=== PATIENT | female | born 1965 | race Caucasian/White ===

== ENCOUNTER → 2022-11-27 | Day surgery (SDC) | payer BC | END | disposition home or self-care (01) | LOC: FMAMMOTONE 12:27 | PROVIDERS: ATTEND Obstetrics & Gynecology | PROC: 0HBT3ZX Excision of Right Breast, Percutaneous Approach, Diagnostic (ICD-10-PCS; principal; 2022-11-27) | DX: Z53.29 Procedure and treatment not carried out because of patient's decision for other reasons (principal); R92.8 Other abnormal and inconclusive findings on diagnostic imaging of breast ==

== ENCOUNTER 2023-02-11 08:32 | Observation (INO) | payer BC ==
[2023-02-11 10:30] LABS: BASO % 0.5 % (0-2.0); EOS % 0.6 % (0-4.5); HEMATOCRIT 38.8 % (32.4-45.2); HEMOGLOBIN 13.6 GM/dL (10.7-15.3); LYMPH % 27.4 % (8-40); MCH 32.8 pg (25.7-33.7); MCHC 35.1 g/dl (32.0-36.0); MEAN CELL VOLUME 93.4 fl (80-96); MEAN PLT VOLUME 7.5 fl (7.5-11.1); MONO % 6.5 % (3.8-10.2); PLATELET COUNT 291 10^3/uL (134-434); RBC 4.15 M/mm3 (3.60-5.2); RDW 12.9 % (11.6-15.6); WHITE BLOOD COUNT 5.8 K/mm3 (4.0-10.0)
[2023-02-11 10:34] LABS: INR 1.03 (0.83-1.09); PROTHROMBIN TIME (PATIENT) 11.9 SEC (9.7-13.0)
[2023-02-11 10:42] LABS: EPI CELLS 6 /uL (0-25.1); HYALINE CASTS 0 /uL (0-3.1); URINE APPEARANCE CLEAR; URINE BACTERIA 1 /uL (0-1359); URINE BILIRUBIN NEGATIVE (NEGATIVE); URINE COLOR YELLOW; URINE GLUCOSE (UA) NEGATIVE (NEGATIVE); URINE KETONE TRACE (NEGATIVE); URINE LEUK ESTERASE NEGATIVE (NEGATIVE); URINE NITRITE NEGATIVE (NEGATIVE); URINE PROTEIN NEGATIVE (NEGATIVE); URINE RBC 16 /uL (0-23.9); URINE UROBILINOGEN 0.2 mg/dL (0.2-1.0); URINE WBC 2 /uL (0-25.8)
[2023-02-11 10:45] LABS: OPIATES, URI NEGATIVE (NEGATIVE); URINE BARBITURATES NEGATIVE (NEGATIVE)
[2023-02-11 10:47] LABS: COCAINE, UR NEGATIVE (NEGATIVE); METHADONE, UR NEGATIVE (NEGATIVE); PHENCYCLIDINE,URINE NEGATIVE (NEGATIVE); URINE BENZODIAZEPINES NEGATIVE (NEGATIVE)
[2023-02-11 10:53] LABS: URINE AMPHETAMINES NEGATIVE (NEGATIVE)
[2023-02-11 11:09] LABS: POTASSIUM 3.9 mmol/L (3.5-5.1)
[2023-02-11 11:11] LABS: CALCIUM 8.9 mg/dL (8.5-10.1)
[2023-02-11 11:12] LABS: ALBUMIN 4.3 g/dl (3.4-5.0)
[2023-02-11 11:15] LABS: CREATININE 0.9 mg/dL (0.55-1.3)
[2023-02-11 11:17] LABS: BILIRUBIN,TOTAL 0.8 mg/dL (0.2-1); TOT PROT 7.8 g/dl (6.4-8.2)
[2023-02-11] MEDS ORDERED: ATENOLOL 25 MG TABLET (FP) ONE (17:13)
[2023-02-11] MEDS: ATENOLOL 25 MG TABLET (FP) PO SCH (17:25)
[2023-02-11 18:33] VITALS: BMI 29.8
[2023-02-12] MEDS: NICOTINE 7 MG/24 HOURS TOPICAL PATCH TD SCH ×2 (03:40→10:30)
[2023-02-12 08:18] LABS: CHOLESTEROL 204 mg/dL (50-200)
[2023-02-12 08:20] LABS: LDL CHOLESTEROL (ONLY SJRH) 94 mg/dL (5-100)
[2023-02-12 08:22] LABS: HDL CHOLESTEROL 93 mg/dL (40-60)
[2023-02-12] MEDS ORDERED: NICOTINE 7 MG/24 HOURS TOPICAL PATCH TD SCH (10:00)
[2023-02-12] MEDS: ASPIRIN COATED 81 MG TABLET.EC PO SCH (10:30)
[2023-02-12] MEDS: ATENOLOL 25 MG TABLET (FP) PO SCH (10:30)
[2023-02-12] MEDS ORDERED: LORazepam 2 MG/ML SDV VIAL IVPUSH PRN (17:56)
[2023-02-13 03:21] VITALS: RESP 18
[2023-02-13] MEDS: NICOTINE 7 MG/24 HOURS TOPICAL PATCH TD SCH (12:11)
[2023-02-13] MEDS: ASPIRIN COATED 81 MG TABLET.EC PO SCH (12:11)
[2023-02-13] MEDS: ATENOLOL 25 MG TABLET (FP) PO SCH ×2 (12:11→13:24)
[2023-02-13 12:59] VITALS: BP 102/75; PULSE 63; TEMP 97.7
== END 2023-02-13 14:40 | disposition home or self-care (01) ==
LOC: JER 08:32 → JERBED 12:58 → J4W 17:43
PROVIDERS: ADMIT Internal Medicine; ATTEND Internal Medicine
DX: R07.89 Other chest pain (principal); I10 Essential (primary) hypertension; F10.20 Alcohol dependence, uncomplicated; F17.210 Nicotine dependence, cigarettes, uncomplicated
CPT/HCPCS: 36415; 71045-TC-FY; 78452-TC; 80053; 80061; 80307; 81003; 82550; 82553; 84443; 84484; 85025; 85610; 93005; 93010; 93017; 93306-TC; 99285-25; A9502; C9803-CS; G0378; U0003; U0005